=== PATIENT | male | born 1990 | race Caucasian/White ===

== ENCOUNTER 2017-02-26 15:03 | Emergency (ER) | payer OTHER ==
[2017-02-26] MEDS ORDERED: DIAZEPAM 5 MG TABLET PO ONE (15:36)
[2017-02-26] MEDS: KETOROLAC TROMETHAMINE 60 MG/2 ML VIAL IM ONE (15:42)
[2017-02-26] MEDS: DIAZEPAM 5 MG TABLET PO ONE (15:43)
[2017-02-26 16:46] VITALS: BP 151/74
--- NOTE | 2017-02-26 16:47 | ED Physician Documentation ---
General Adult - HISTORIAN Historian: patient - HPI Stated Complaint: chest pain Chief Complaint: General Adult Onset: days ago (2) Timing: other (no pain at time of exam) Severity: moderate Further Comments: yes (Pt is a 26 yo male with c/o chest pain. Pain occurs only briefly, for a few seconds, in his L upper chest. No n/v. Pt states that he sometimes is sob when this happens. Pt has hx anxiety and appear anxious in ER. Pt has hx HTN and is hypertensive on presentation with bp = 208/115. Pt says that he took his bp med, Metoprolol 100 mg ER, just prior to coming to ER.) - ROS CONST: no problems EYES/ENT: none CVS/RESP: chest pain, other (elevated bp) GI/: none MS/SKIN/LYMPH: none - PAST HX Past History: hypertension, other (anxiety) Surgeries/Procedures: other (orthopedic) Allergies/Adverse Reactions: Allergies Allergy/AdvReac Type Severity Reaction Status Date / Time cefazolin sodium [From Ancef] Allergy Intermediate Hives Unverified 05/06/13 11: 08 Penicillins Allergy Intermediate Hives Unverified 05/06/13 11:08 sulfamethoxazole Allergy Intermediate Hives Unverified 05/06/13 11:08 [From Bactrim] codeine Allergy Verified 02/26/17 15:29 - SOCIAL HX Smoking History: cigarettes - FAMILY HX Family History: Yes (HTN) - VITAL SIGNS Vital Signs: Vital Signs Temp Pulse Resp BP Pulse Ox 162/98 02/25/14 14:14 - REVIEWED ASSESSMENTS Nursing Assessment Reviewed: Yes Vitals Reviewed: Yes Progress - Progress Progress: Toradol 60 mg IM Diazepam 5 mg po Pt took Metoprolol 100 mg ER just prior to coming to ER. BP 208/115 --> 151/74 Pt is strongly advised to take bp med as directed and to f/u with pcp for re- eval of bp and med regimen. Pt advised to keep daily record of bp at home to discuss with pcp. General Adult Physical Exam - PHYSICAL EXAM GENERAL APPEARANCE: anxious EENT: pharynx normal NECK: normal inspection, supple RESPIRATORY: no resp distress, chest non-tender, breath sounds normal CVS: reg rate & rhythm, heart sounds normal ABDOMEN: soft, no organomegaly, normal bowel sounds SKIN: warm/dry, normal color EXTREMITIES: non-tender, normal range of motion, no evidence of injury NEURO: oriented X3, motor nml, sensation nml, other (anxious) Discharge Clincal Impression: Non-cardiac transient chest pain, Hypertension Referrals: Felix Stovall MD [Primary Care Provider] - Condition: Stable Disposition: 01 HOME, SELF-CARE Decision to Admit: NO Decision Time: 16:26
== END 2017-02-26 16:29 | disposition home or self-care (01) ==
LOC: ED 15:03
DX: R07.9 Chest pain, unspecified (principal); I10 Essential (primary) hypertension
CPT/HCPCS: 93005; J1885; 96372; 99283

== ENCOUNTER 2019-01-23 01:56 | Emergency (ER) | payer OTHER ==
[2019-01-23] MEDS: 0.9 % SODIUM CHLORIDE 1,000 ML IV ONE ×2 (02:20→03:52)
--- NOTE | 2019-01-23 03:29 | ED Physician Documentation ---
General Adult - HISTORIAN Historian: patient, friend - HPI Stated Complaint: c/o weakness and disorientation Chief Complaint: General Adult Timing: worse Further Comments: yes (28 year old female patient presents with complaints of hypertension, anxiety and feeling confused. Patient reports he is out of his anxiety medications, so he took his sister's klonopine. Friend reports patient has not been to the doctor in years; drink daily. Patient denies previous elevation in LFTs. Continued to play video games on his phone during entire ROS and physical.) - ROS CONST: no problems EYES/ENT: none CVS/RESP: none GI/: abdominal pain MS/SKIN/LYMPH: none NEURO/PSYCH: other (confusion) - PAST HX Past History: hypertension Other History: other (anxiety) - SOCIAL HX Alcohol Use: heavy - FAMILY HX Family History: No - VITAL SIGNS Vital Signs: Vital Signs Temp Pulse Resp BP Pulse Ox 98.7 F 87 18 153/91 97 01/23/19 02:05 01/23/19 03:16 01/23/19 03:16 01/23/19 03:16 01/23/19 03:17 - REVIEWED ASSESSMENTS Nursing Assessment Reviewed: Yes Vitals Reviewed: Yes <OMER HINDS - Last Filed: 01/23/19 06:59> - SOCIAL HX Smoking History: cigarettes Drug Use: none - VITAL SIGNS Vital Signs: Vital Signs Temp Pulse Resp BP Pulse Ox 98.7 F 91 H 18 153/91 97 01/23/19 02:05 01/23/19 06:00 01/23/19 03:16 01/23/19 03:16 01/23/19 06:00 <Aga Karimi - Last Filed: 01/23/19 09:27> - PAST HX Allergies/Adverse Reactions: Allergies Allergy/AdvReac Type Severity Reaction Status Date / Time cefazolin sodium [From Ancef] Allergy Intermediate Hives Verified 01/23/19 02:46 Penicillins Allergy Intermediate Hives Verified 01/23/19 02:46 sulfamethoxazole Allergy Intermediate Hives Verified 01/23/19 02:46 [From Bactrim] codeine Allergy Verified 01/23/19 02:46 Progress - Progress Progress: No urine drug screens available. Girlfriend reports patient drinks patient drinks half a fifth daily. Smell of ETOH noted. [address] results with patient and friend; recommended transfer for further evaluation. Patient prefers [facility]. Patient denies daily or frequent tylenol use; is not on a statin. Most likely cause of acute liver failure at this time is ETOH abuse. 0446 Call to [facility] for transfer [address] Garcias. Will accept patient. No bed available at this time. Multiple morning discharges pending. Patient is #2 on wait list. 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 He has no complaints currently DG 0800: [facility] bed status per admission advisor is hours to days DG 0843: repeat labs are improved. Did discuss care with Dr Pereira and she is agreeable to discharge plan. Follow up with Dr Garza Sunday or return to ER for any increased concerns DG <Aga Karimi - Last Filed: 01/23/19 09:27> ED Results Lab/Radiology - Radiology Radiology Impressions: CT abdomen and pelvis History: Elevated liver enzymes Technique: Helically acquired images were obtained from the hemidiaphragms to the pelvic floor following IV but no oral contrast. Findings: There is extremely marked hypodensity of the entire liver and the liver is moderate to markedly enlarged measuring up to 30 cm. These findings are consistent with marked hepatic steatosis. The gallbladder, spleen, pancreas, adrenal glands and kidneys are unremarkable. Small and large bowel loops are normal in caliber. The appendix is normal. The bladder, seminal vesicles and prostate gland are normal. Lung bases are clear. Impression: There is moderate to marked hepatomegaly. The entire liver is diffusely abnormally hypodense consistent with marked hepatic steatosis. No additional intra-abdominal or intrapelvic abnormalities are noted. Electronically signed on January 23, 2019 4:21:49 AM CDT by: Latrice Johnson PA AND LATERAL CHEST HISTORY: Cough COMPARISON: None PA and Lateral Chest dated January 23, 2019 demonstrates a normal cardiomediastinal silhouette. Pulmonary vascularity is normal. Lungs are clear. IMPRESSION: NO ACTIVE DISEASE. Electronically signed on January 23, 2019 4:17:58 AM CDT by: Latrice Johnson - Orders Orders: ED Orders Category Date Time Status Continuous EKG monitoring Q1H Care 01/23/19 02:13 Active Continuous Pulse Oximetry Q1H Care 01/23/19 02:[address] ABD & PELVIS W/ CON Stat Exams 01/23/19 Ordered ALCOHOL MEDICAL USE ONLY Stat Lab 01/23/19 Ordered AMYLASE Routine Lab 01/23/19 Ordered CBC/PLATELET/DIFF Stat Lab 01/23/19 02:15 Received CMP Stat Lab 01/23/19 02:15 Received URINALYSIS Stat Lab 01/23/19 Uncollected 0.9 % Sodium Chloride [Normal Saline] 1,000 ml Med 01/23/19 02:12 Discontinued IV Q1H <OMER HINDS - Last Filed: 01/23/19 06:59> - Lab Results Lab Results: Lab Results 01/23/19 01/23/19 01/23/19 03:30 03:30 03:30 APTT 26.1 Seconds Seconds (24.5-32.8) Sodium Potassium Chloride Carbon Dioxide BUN Creatinine Estimated Creat Clear Est GFR ( Amer) Est GFR (Non-Af Amer) Glucose Calcium Total Bilirubin AST ALT Alkaline Phosphatase Total Protein Albumin Amylase 63 U/L U/L (30-110) Acetaminophen < 10.0 ug/mL L ug/mL (10-30) Ethyl Alcohol 108.9 mg/dL H mg/dL (0.0-10.0) 01/23/19 02:15 APTT Sodium 123 mmol/L L mmol/L (137-145) Potassium 3.5 mmol/L mmol/L (3.5-5.1) Chloride 88 mmol/L L mmol/L (98-107) Carbon Dioxide 19 mmol/L L mmol/L (22-30) BUN 6 mg/dL L mg/dL (9-20) Creatinine 0.83 mg/dL mg/dL (0.66-1.25) Estimated Creat Clear 248 Est GFR ( Amer) > 60 (60 - ) Est GFR (Non-Af Amer) > 60 (60 - ) Glucose 158 mg/dL H mg/dL (74-106) Calcium 9.0 mg/dL mg/dL (8.4-10.2) Total Bilirubin 2.0 mg/dL H mg/dL (0.2-1.3) AST 586 U/L H U/L (15-46) ALT 396 U/L H U/L (0-50) Alkaline Phosphatase 154 U/L H U/L (38-126) Total Protein 7.8 g/dL g/dL (6.3-8.2) Albumin 3.9 g/dL g/dL (3.5-5.0) Amylase Acetaminophen Ethyl Alcohol - Orders Orders: ED Orders Category Date Time Status Continuous EKG monitoring Q1H Care 01/23/19 02:13 Active Continuous Pulse Oximetry Q1H Care 01/23/19 02:15 Active CHEST 2VIEW [RAD] Stat Exams 01/23/19 03:[address] ABD & PELVIS W/ CON Stat Exams 01/23/19 Completed ACETAMINOPHEN LEVEL Stat Lab 01/23/19 03:30 Completed ALCOHOL MEDICAL USE ONLY Stat Lab 01/23/19 03:30 Completed AMYLASE Routine Lab 01/23/19 03:30 Completed CBC/PLATELET/DIFF Stat Lab 01/23/19 02:15 Received CMP Stat Lab 01/23/19 02:15 Completed DRUG SCREEN COMPREHENSIVE Routine Lab 01/23/19 03:00 Received PTT Stat Lab 01/23/19 03:30 Completed URINALYSIS Stat Lab 01/23/19 02:05 Ordered 0.9 % Sodium Chloride [Normal Saline] 1,000 ml Med 01/23/19 03:39 Discontinued IV .STK-MED 0.9 % Sodium Chloride [Normal Saline] 1,000 ml Med 01/23/19 02:12 Discontinued IV Q1H Folic Acid [Folvite] Med 01/23/19 03:39 Discontinued 5 mg .ROUTE .STK-MED ONE Multivit Infusn,Adult 1,Vit K [M.v.i. Adult] Med 01/23/19 03:40 Discontinued 10 ml IV .STK-MED ONE Thiamine HCl [Vitamin B-1] Med 01/23/19 03:40 Discontinued 200 mg .ROUTE .STK-MED ONE Thiamine HCl [Vitamin B-1] 100 mg Med 01/23/19 05:00 Ordered Multivit Infusn,Adult 1,Vit K [M.v.i. Adult] 10 ml Folic Acid [Folvite] 5 mg 0.9 % Sodium Chloride [Normal Saline] 1,000 ml IV Q8 hydrALAZINE HCL [Apresoline] Med 01/23/19 04:34 Discontinued 10 mg IVP NOW ONE <Aga Karimi - Last Filed: 01/23/19 09:27> General Adult Physical Exam - PHYSICAL EXAM GENERAL APPEARANCE: play video games on his phone EENT: eye inspection normal, JAMIE. 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 Call PCP office [facility] for follow up Sunday 2. DO NOT DRINK ALCOHOL 3. Continue home meds 4. Return to ER for any increasing concerns Decision to Admit: NO Date of Decison to Admit: 01/23/19 Decision Time: 08:49 <Aga Karimi - Last Filed: 01/23/19 09:27> Clincal Impression: Acute liver failure Qualifiers: Hepatic coma status: without hepatic coma Qualified Code(s): K72.00 - Acute and subacute hepatic failure without coma Referrals: Primary Doctor,No [Primary Care Provider] - 2 Days Condition: Stable Disposition: 01 HOME, SELF-CARE
[2019-01-23] MEDS: MULTIVIT INFUSN,ADULT 1,VIT K 10 ML VIAL IV ONE (03:52)
[2019-01-23] MEDS: FOLIC ACID 5 MG/1 ML ONE (03:52)
[2019-01-23] MEDS: THIAMINE HCL 200 MG/2 ML VIAL ONE (03:52)
[2019-01-23] MEDS: THIAMINE HCL 100 MG, MULTIVIT INFUSN,ADULT 1,VIT K 10 ML, FOLIC ACID 5 MG in 0.9 % SODI... IV SCH (03:59)
--- NOTE | 2019-01-23 04:21 | Diagnostic Imaging Report ---
OMER HINDS (INSURANCE RISK SURVEYOR) - ER [facility] [address] [facility] [address] [place], [place]. [address] Report Submission Date: January 23, 2019 4:17:58 AM CDT Patient Study Name: JERMAINE JOSEPH Date: January 23, 2019 3:56:54 AM CDT Modality Type: DX Gender: M Description: CHEST 2VIEW : 89 Institution: [facility] Physician: OMER HINDS (INSURANCE RISK SURVEYOR) - ER PA AND LATERAL CHEST HISTORY: Cough COMPARISON: None PA and Lateral Chest dated January 23, 2019 demonstrates a normal cardiomediastinal silhouette. Pulmonary vascularity is normal. Lungs are clear. IMPRESSION: NO ACTIVE DISEASE. Electronically signed on January 23, 2019 4:17:58 AM CDT by: Latrice KHALIL
--- NOTE | 2019-01-23 04:24 | Diagnostic Imaging Report ---
OMER HINDS (BUSINESS EDUCATION PROFESSOR) - ER [facility] [address] [facility] [address] Report Submission Date: January 23, 2019 4:21:49 AM CDT Patient Study Name: JERMAINE JOSEPH Date: January 23, 2019 3:47:56 AM CDT Modality Type: CT\SR Gender: M Description: CT ABD PELVIS W/ CON : 89 Institution: [facility] Physician: OMER HINDS (BUSINESS EDUCATION PROFESSOR) - ER CT abdomen and pelvis History: Elevated liver enzymes Technique: Helically acquired images were obtained from the hemidiaphragms to the pelvic floor following IV but no oral contrast. Findings: There is extremely marked hypodensity of the entire liver and the liver is moderate to markedly enlarged measuring up to 30 cm. These findings are consistent with marked hepatic steatosis. The gallbladder, spleen, pancreas, adrenal glands and kidneys are unremarkable. Small and large bowel loops are normal in caliber. The appendix is normal. The bladder, seminal vesicles and prostate gland are normal. Lung bases are clear. Impression: There is moderate to marked hepatomegaly. The entire liver is diffusely abnormally hypodense consistent with marked hepatic steatosis. No additional intra-abdominal or intrapelvic abnormalities are noted. Electronically signed on January 23, 2019 4:21:49 AM CDT by: Latrice KHALIL
[2019-01-23] MEDS: hydrALAZINE HCL 20 MG/1 ML IVP ONE (04:51)
[2019-01-23 06:43] LABS: eGFR (Non-African) > 60
[2019-01-23 07:22] LABS: MEAN CORPUSCULAR HEMOGLOBIN 35.7 pg (28.0-34.0)
[2019-01-23 07:32] LABS: ANISOCYTOSIS 2+ (NEGATIVE); BASOPHILS % 1 % (0-2); EOSINOPHILS % 8 % (0-7); MONOCYTES % 5 % (0-11); SEGMENTED NEUTROPHILS % 37 % (39-79); STOMATOCYTES 1+ (NEGATIVE); TOXIC GRANULATION PRESENT
[2019-01-23 08:28] LABS: eGFR (Non-African) > 60
[2019-01-23 08:32] LABS: BASOPHILS % 0.6 % (0.0-1.5); EOSINOPHILS % 10.1 % (0.0-6.8); MEAN CORPUSCULAR HEMOGLOBIN 35.2 pg (28.0-34.0); MONOCYTES % 25.6 % (0.0-11.0); NEUTROPHILS # 1.2 # k/uL (1.4-7.7)
[2019-01-23 09:00] VITALS: BP 155/88
[2019-01-23 10:43] LABS: APPEARANCE,URINE CLEAR (CLEAR); COLOR,URINE YELLOW (YELLOW); OCCULT BLOOD,URINE TRACE-LYSED (NEGATIVE); UROBILINOGEN URINE 0.2 Eu (0.2-1.0)
== END 2019-01-23 08:55 | disposition home or self-care (01) ==
LOC: ED 01:56
DX: K72.00 Acute and subacute hepatic failure without coma (principal)
CPT/HCPCS: 36415; 71046; 74177; 80053; 80320; 80377; 81002; 82150; 85025; 85730; 96374; 96375; 99284; 99285; J0360; J3411; J3490; J7030; Q9967; G0480; G0481; S1016